=== PATIENT | female | born 1990 | race Caucasian/White ===

== ENCOUNTER → 2020-11-23 | Outpatient (CLI) | payer BC | LOC: EXRD 09:04 | DX: R05 Cough (principal); R06.00 Dyspnea, unspecified | CPT/HCPCS: 71046 ==

== ENCOUNTER → 2022-03-14 | Outpatient (CLI) | payer BC | LOC: EXRD 14:24 | DX: M54.50 Low back pain, unspecified (principal) | CPT/HCPCS: 72100 ==